=== PATIENT | male | born 1950 | race African-American/Black ===

== ENCOUNTER 2017-09-03 16:29 | Emergency (ER) | payer OTHER ==
[~2017-09-03] VITALS: Wt 86.0 kg
--- NOTE | 2017-09-03 17:10 | RADRPT ---
PROCEDURE: CT Head without contrast. CLINICAL INDICATION: Altered mental status TECHNIQUE: The study was performed utilizing a GE 64-slice multidetector CT scanner. Direct spiral axial CT images of the brain were obtained from the vertex to the skull base without contrast. Jake nal and sagittal reformatted images are provided. The CTDI vol is 163.41 mGy and the DLP is 1426.4 m Gy-cm. The images were reviewed on a PACS workstation. One or more of the following dose reduction techniques were used: Automated exposure control. Adjustment of the mA and/or kV according to patient size. Use of iterative reconstruction technique. COMPARISON: No prior studies are available for comparison. FINDINGS: Exam is limited secondary to motion artifact. Mild diffuse atrophy is seen with a compensatory ventr icular enlargement. Mild white matter disease in the periventricular and deep white matter is seen. The mccracken-white matter differentiation is maintained. No intra or extra-axial fluid collection or mass effect or shift in the midline structures is seen. The visualized paranasal sinuses, mastoid a ir cells, orbits, and calvarium are unremarkable. Vascular calcifications are seen. IMPRESSION: 1. Limited examination secondary to motion artifact. Otherwise, no definite acute intracranial path ology. 2. Mild diffuse volume loss and mild chronic microvascular ischemic changes. RPTAT: HPNM Physician Debi Date Time Electronically viewed and signed by Physician Debi on 09/03/2017 17:10 /
--- NOTE | 2017-09-03 17:22 | RADRPT ---
PROCEDURE: CT cervical spine without contrast CLINICAL INDICATION: Trauma. Neck pain. TECHNIQUE: CT scan of the cervical spine was performed on [facility] No [facility] contrast was administered. Coronal and sagittal reformatted images were obtained from th e axial source images. Images were reviewed on a high-resolution PACS workstation. One or more the f ollowing does reduction techniques were utilized: Automated exposure control, adjustment of the mA/ or kV according to patient's size, or use of iterative reconstruction technique. Exam CTDI = 20.98 m Gy and the DLP = 445.56 mGy-cm. COMPARISON: None available. FINDINGS: There is straightening of the alignment of the cervical spine with loss of the normal cervical lordo sis. Alignment remains intact. No acute fracture or dislocation is seen. The vertebral body heigh ts are preserved. No mass, hematoma, or other soft tissue abnormality is seen. There are multilevel moderate to severe degenerative changes of the cervical spine, manifested by os teophytosis and disc height narrowing, most prominent at C5-C6 and C6-C7. There is discontinuity of C5-C6 osteophyte which is likely chronic. Uncovertebral osteophytes and facet arthropathy result in multilevel foraminal stenosis: at C2-C3 moderate on the left, at C3-C4 severe on the right and moder ate to severe on the left, at C4-C5 mild on the right and moderate to severe on the left, at C5-C6 m ild on the right than moderate on the left, at C6-C7 mild on the left and at T1-T2 moderate to sever e bilaterally. Posterior disc osteophyte complexes contributes to moderate spinal canal stenosis at C3-C4 through C6-C7 and mild to moderate spinal canal narrowing at C2-C3. IMPRESSION: 1. Straightening of normal cervical lordosis. 2. No acute fracture or traumatic subluxation. 3. Multilevel moderate to severe degenerative changes of the cervical spine, most prominent at C5-C 6 and C6-C7. 4. Posterior disc osteophyte complexes contributes to moderate spinal canal stenosis at C3-C4 throu gh C6-C7 and mild to moderate spinal canal narrowing at C2-C3. 5. Multilevel foraminal stenosis as outlined in details in findings. RPTAT: HH .Jenna Charles MD, MD Date Time Electronically viewed and signed by .Jenna Charles MD, MD on 09/03/2017 17:22 .N/
--- NOTE | 2017-09-03 19:08 | ERD ---
ER Documentation Chief Complaint Chief Complaint PT BIB AMBULANCE, ETOH INTOXICATION, UNCOOPERATIVE, NO TRAUMA HPI Patient is a 66-year-old male who presents altered. Please note the history and physical exam is limited secondary to the patient's altered mental status. The patient was brought in by ambulance. The patient was drinking alcohol in a park. [facility] His blood sugar was 107 by paramedics. I cannot obtain history otherwise. ROS All systems reviewed and are negative except as per history of present illness. PMhx/Soc Medical and Surgical Hx: Unable to obtain Hx Alcohol Use: Yes Smoking Status: Unknown if ever smoked FmHx Unable to obtain Physical Exam Vitals Vital Signs Date Time Temp Pulse Resp B/P Pulse Ox O2 Delivery O2 Flow Rate FiO2 09/03/17 16:52 97.8 74 17 111/56 95 Physical Exam Const: Altered Head: Atraumatic Eyes: Normal Conjunctiva ENT: Normal External Ears, Nose and Mouth. Neck: Full range of motion..~ No meningismus. Resp: Clear to auscultation bilaterally Cardio: Regular rate and rhythm, no murmurs Abd: Soft, non tender, non distended. Normal bowel sounds Skin: No petechiae or rashes Back: No midline or flank tenderness Ext: No cyanosis, or edema Neur: Awake but altered, likely intoxicated Procedures/MDM CT head negative for skull fracture or hemorrhage per radiology. Patient is a 66-year-old male who presents with altered mental status. He was found drinking alcohol by paramedics. He is now altered. Accu-Chek was normal and CT head was negative for skull fracture or intracranial hemorrhage. The patient will be watched until he is clinically sober and will be discharged. He was monitored for multiple signs of airway decompensation but he has been maintaining his own airway. Critical Care: Time: 35 minutes excluding all billable procedures. Treatments/Evaluations: Close monitoring and treatment of unstable vital signs, cardiorespiratory, and neurologic status, while maintaining tight balance of fluid, respiratory, and cardiac interventions. Departure Diagnosis: Primary Impression: Altered mental status Altered mental status type: unspecified Qualified Code: R41.82 - Altered mental status, unspecified altered mental status type Additional Impression: Alcoholic intoxication Complication of substance-induced condition: with delirium Qualified Code: F10.921 - Alcohol intoxication with delirium Condition: Fair Patient Instructions: Alcohol Intoxication Referrals: [facility] YOU HAVE RECEIVED A MEDICAL SCREENING EXAM AND THE RESULTS INDICATE THAT YOU DO NOT HAVE A CONDITION THAT REQUIRES URGENT TREATMENT IN THE EMERGENCY DEPARTMENT. FURTHER EVALUATION AND TREATMENT OF YOUR CONDITION CAN WAIT UNTIL YOU ARE SEEN IN YOUR DOCTORS OFFICE WITHIN THE NEXT 1-2 DAYS. IT IS YOUR RESPONSIBILITY TO MAKE AN APPOINTMENT FOR FOLOW-UP CARE. IF YOU HAVE A PRIMARY DOCTOR --you should call your primary doctor and schedule an appointment IF YOU DO NOT HAVE A PRIMARY DOCTOR YOU CAN CALL OUR PHYSICIAN REFERRAL HOTLINE AT IF YOU CAN NOT AFFORD TO SEE A PHYSICIAN YOU CAN CHOSE FROM THE FOLLOWING [facility] [address] [facility]. [facility] [address] [facility] [place] [address] [facility] [facility] [address] [facility]. [facility] [address] [facility]. [facility] [address] Additional Instructions: Call your primary care doctor TOMORROW for an appointment during the next 1-2 days.See the doctor sooner or return here if your condition worsens before your appointment time. GUANAKITO DIAZ MD Sep 03, 2017 19:08
--- NOTE | 2017-09-03 19:08 | ERD ---
ER Documentation Chief Complaint Chief Complaint PT BIB AMBULANCE, ETOH INTOXICATION, UNCOOPERATIVE, NO TRAUMA HPI Patient is a 66-year-old male who presents altered. Please note the history and physical exam is limited secondary to the patient's altered mental status. The patient was brought in by ambulance. The patient was drinking alcohol in a park. [facility] His blood sugar was 107 by paramedics. I cannot obtain history otherwise. ROS All systems reviewed and are negative except as per history of present illness. PMhx/Soc Medical and Surgical Hx: Unable to obtain Hx Alcohol Use: Yes Smoking Status: Unknown if ever smoked FmHx Unable to obtain Physical Exam Vitals Vital Signs Date Time Temp Pulse Resp B/P Pulse Ox O2 Delivery O2 Flow Rate FiO2 09/03/17 16:52 97.8 74 17 111/56 95 Physical Exam Const: Altered Head: Atraumatic Eyes: Normal Conjunctiva ENT: Normal External Ears, Nose and Mouth. Neck: Full range of motion..~ No meningismus. Resp: Clear to auscultation bilaterally Cardio: Regular rate and rhythm, no murmurs Abd: Soft, non tender, non distended. Normal bowel sounds Skin: No petechiae or rashes Back: No midline or flank tenderness Ext: No cyanosis, or edema Neur: Awake but altered, likely intoxicated Procedures/MDM CT head negative for skull fracture or hemorrhage per radiology. Patient is a 66-year-old male who presents with altered mental status. He was found drinking alcohol by paramedics. He is now altered. Accu-Chek was normal and CT head was negative for skull fracture or intracranial hemorrhage. The patient will be watched until he is clinically sober and will be discharged. He was monitored for multiple signs of airway decompensation but he has been maintaining his own airway. Critical Care: Time: 35 minutes excluding all billable procedures. Treatments/Evaluations: Close monitoring and treatment of unstable vital signs, cardiorespiratory, and neurologic status, while maintaining tight balance of fluid, respiratory, and cardiac interventions. Departure Diagnosis: Primary Impression: Altered mental status Altered mental status type: unspecified Qualified Code: R41.82 - Altered mental status, unspecified altered mental status type Additional Impression: Alcoholic intoxication Complication of substance-induced condition: with delirium Qualified Code: F10.921 - Alcohol intoxication with delirium Condition: Fair Patient Instructions: Alcohol Intoxication Referrals: [facility] YOU HAVE RECEIVED A MEDICAL SCREENING EXAM AND THE RESULTS INDICATE THAT YOU DO NOT HAVE A CONDITION THAT REQUIRES URGENT TREATMENT IN THE EMERGENCY DEPARTMENT. FURTHER EVALUATION AND TREATMENT OF YOUR CONDITION CAN WAIT UNTIL YOU ARE SEEN IN YOUR DOCTORS OFFICE WITHIN THE NEXT 1-2 DAYS. IT IS YOUR RESPONSIBILITY TO MAKE AN APPOINTMENT FOR FOLOW-UP CARE. IF YOU HAVE A PRIMARY DOCTOR --you should call your primary doctor and schedule an appointment IF YOU DO NOT HAVE A PRIMARY DOCTOR YOU CAN CALL OUR PHYSICIAN REFERRAL HOTLINE AT IF YOU CAN NOT AFFORD TO SEE A PHYSICIAN YOU CAN CHOSE FROM THE FOLLOWING [facility] [address] [facility]. [facility] [address] [facility]. [facility] [address] [facility] [address] [facility]. [facility] [address] [facility]. [facility] [address] Additional Instructions: Call your primary care doctor TOMORROW for an appointment during the next 1-2 days.See the doctor sooner or return here if your condition worsens before your appointment time. GUANAKITO DIAZ MD Sep 03, 2017 19:08
--- NOTE | 2017-09-03 19:08 | ERD ---
ER Documentation Chief Complaint Chief Complaint PT BIB AMBULANCE, ETOH INTOXICATION, UNCOOPERATIVE, NO TRAUMA HPI Patient is a 66-year-old male who presents altered. Please note the history and physical exam is limited secondary to the patient's altered mental status. The patient was brought in by ambulance. The patient was drinking alcohol in a park. [facility] His blood sugar was 107 by paramedics. I cannot obtain history otherwise. ROS All systems reviewed and are negative except as per history of present illness. PMhx/Soc Medical and Surgical Hx: Unable to obtain Hx Alcohol Use: Yes Smoking Status: Unknown if ever smoked FmHx Unable to obtain Physical Exam Vitals Vital Signs Date Time Temp Pulse Resp B/P Pulse Ox O2 Delivery O2 Flow Rate FiO2 09/03/17 16:52 97.8 74 17 111/56 95 Physical Exam Const: Altered Head: Atraumatic Eyes: Normal Conjunctiva ENT: Normal External Ears, Nose and Mouth. Neck: Full range of motion..~ No meningismus. Resp: Clear to auscultation bilaterally Cardio: Regular rate and rhythm, no murmurs Abd: Soft, non tender, non distended. Normal bowel sounds Skin: No petechiae or rashes Back: No midline or flank tenderness Ext: No cyanosis, or edema Neur: Awake but altered, likely intoxicated Procedures/MDM CT head negative for skull fracture or hemorrhage per radiology. Patient is a 66-year-old male who presents with altered mental status. He was found drinking alcohol by paramedics. He is now altered. Accu-Chek was normal and CT head was negative for skull fracture or intracranial hemorrhage. The patient will be watched until he is clinically sober and will be discharged. He was monitored for multiple signs of airway decompensation but he has been maintaining his own airway. Critical Care: Time: 35 minutes excluding all billable procedures. Treatments/Evaluations: Close monitoring and treatment of unstable vital signs, cardiorespiratory, and neurologic status, while maintaining tight balance of fluid, respiratory, and cardiac interventions. Departure Diagnosis: Primary Impression: Altered mental status Altered mental status type: unspecified Qualified Code: R41.82 - Altered mental status, unspecified altered mental status type Additional Impression: Alcoholic intoxication Complication of substance-induced condition: with delirium Qualified Code: F10.921 - Alcohol intoxication with delirium Condition: Fair Patient Instructions: Alcohol Intoxication Referrals: [facility] YOU HAVE RECEIVED A MEDICAL SCREENING EXAM AND THE RESULTS INDICATE THAT YOU DO NOT HAVE A CONDITION THAT REQUIRES URGENT TREATMENT IN THE EMERGENCY DEPARTMENT. FURTHER EVALUATION AND TREATMENT OF YOUR CONDITION CAN WAIT UNTIL YOU ARE SEEN IN YOUR DOCTORS OFFICE WITHIN THE NEXT 1-2 DAYS. IT IS YOUR RESPONSIBILITY TO MAKE AN APPOINTMENT FOR FOLOW-UP CARE. IF YOU HAVE A PRIMARY DOCTOR --you should call your primary doctor and schedule an appointment IF YOU DO NOT HAVE A PRIMARY DOCTOR YOU CAN CALL OUR PHYSICIAN REFERRAL HOTLINE AT IF YOU CAN NOT AFFORD TO SEE A PHYSICIAN YOU CAN CHOSE FROM THE FOLLOWING [facility] [address] [facility]. [facility] [address] [facility] [address] [facility]. [facility] [address] [facility]. [facility] [address] [facility]. [facility] [address] Additional Instructions: Call your primary care doctor TOMORROW for an appointment during the next 1-2 days.See the doctor sooner or return here if your condition worsens before your appointment time. GUANAKITO DIAZ MD Sep 03, 2017 19:08
[2017-09-04 07:50] VITALS: BP 156/78; PULSE 82; RESP 18
== END 2017-09-04 07:54 | disposition home or self-care (01) ==
LOC: EDBD 16:29 → E/R 16:29
DX: F10.921 Alcohol use, unspecified with intoxication delirium (principal)
CPT/HCPCS: 70450; 72125